=== PATIENT | male | born 1990 | race Caucasian/White ===

== ENCOUNTER 2023-01-27 21:38 | Emergency (ER) | payer BC, OTHER ==
[2023-01-27] MEDS ORDERED: Sodium Chloride 0.9% 10 ML Syringe FLUSH PRN (22:06)
[2023-01-27] MEDS ORDERED: Glucagon,Human Recombinant 1 MG Vial ONE (22:16)
[2023-01-27] MEDS: Glucagon,Human Recombinant 1 MG Vial IVPUSH STA ×2 (22:17→22:43)
== END 2023-01-27 23:30 | disposition critical access hospital (66) ==
LOC: CC.ED 21:38
DX: T18.128A Food in esophagus causing other injury, initial encounter (principal); K56.609 Unspecified intestinal obstruction, unspecified as to partial versus complete obstruction
CPT/HCPCS: 96374; 99284; 99284-25; J1610